=== PATIENT | female | born 1950 | race Caucasian/White ===

== ENCOUNTER 2018-06-29 04:30 | Emergency (ER) | payer MEDICARE, OTHER ==
[2018-06-29 05:52] LABS: #Basophils 0.1 thou/uL (0.0-0.2); #Eosinphils 0.1 thou/uL (0.0-0.7); #Lymphocytes 2.4 thou/uL (1.20-3.40); #Monocytes 0.6 thou/uL (0.11-0.59); #Neutrophils 10.3 thou/uL (1.40-6.50); %Basophils 0.4 % (0.0-1.0); %Eosinophils 0.8 % (0.0-10.0); %Lymphocytes 17.8 % (21.0-51.0); %Monocytes 4.4 % (0.0-10.0); %Neutrophils 76.6 % (42.0-75.0); Hemoglobin 13.9 g/dL (12.0-16.0); Mean Corpuscular HGB CONC 32.4 g/dL (32.0-36.0); Mean Corpuscular Hemoglobin 29.9 pg (27.0-31.0); Mean Corpuscular Volume 92.2 fL (78.0-98.0); Mean Platelet Volume 7.9 fL (7.4-10.4); Platelet Count 306 thou/uL (130-400); RBC Distribution Width 13.1 % (11.5-14.5); Red Blood Cell (RBC) Count 4.66 mill/uL (4.20-5.40); White Blood Cell (WBC) Count 13.4 thou/uL (4.8-10.8)
[2018-06-29 06:18] LABS: ALT (SGPT) 14 U/L (8-55); AST (SGOT) 13 U/L (5-34); Alkaline Phosphatase 114 U/L (40-150); Anion Gap 12 mmol/L (10-20); BUN (Urea Nitrogen) 22 mg/dL (9.8-20.1); Bilirubin, Total 0.2 mg/dL (0.2-1.2); Calc. Creatinine Clearance 0 mL/min (70-130); Calcium 9.9 mg/dL (7.8-10.44); Carbon Dioxide 28 mmol/L (23-31); Chloride 102 mmol/L (98-107); Estimated GFR-MDRD 61; Glucose 163 mg/dL (80-115); Lipase 18 U/L (8-78); Potassium 4.5 mmol/L (3.5-5.1); Sodium 137 mmol/L (136-145)
[2018-06-29 06:28] LABS: Bilirubin Negative (Negative); Blood, Urine Negative (Negative); Clarity CLEAR (Clear); Glucose, Urine (Dipstick) Negative (Negative); Leukocyte Negative (Negative); Nitrite Negative (Negative); Protein, Urine (Dipstick) Negative (Neg-Trace); Specific Gravity, Urine 1.025 (1.002-1.036)
[2018-06-29 06:30] LABS: Bacteria/HPF None Seen HPF (None Seen); Hyaline Casts/LPF 0-3 HYALINE CAST LPF (0-3 Hyaline); RBC/HPF 0-3 HPF (0-3); Squamous Epithelial 0-3 HPF (0-3)
[2018-06-29 06:41] LABS: Crystals/HPF 1+ CA OXALATE HPF (Negative)
--- NOTE | 2018-06-29 09:55 | CT ---
CT ABDOMEN AND PELVIS WITH IV CONTRAST: Date: 06/29/18 INDICATION: History of left upper quadrant abdominal pain with nausea, vomiting, and diarrhea. COMPARISON: Prior CT of abdomen and pelvis with contrast dated 07/16/16. FINDINGS: Lung bases are clear. There is diffuse fatty liver. There is cholelithiasis again noted. Pancreas and right adrenal gland are normal appearing. Diffuse nodular hypertrophy of the left adrena l gland appears stable. Calcified granuloma of spleen present. Kidneys are normal appearing. There are moderate calcifications involving the abdominal aorta. No free fluid or enlarged lymph nodes are evident. The bladder is partially decompressed. The rectum and reproductive structures appear within normal li mits. There is scattered diverticula involving the colon without evidence of active diverticulitis. There i s a normal appendix in the right lower quadrant. There is slight prominence of bowel loops within the right lower quadrant of the abdomen which may reflect sequelae of a mild enteritis. There is diffuse osteopenia. There is scattered degenerative and osteoarthritic change. IMPRESSION: 1. Slight prominence of a few bowel loops within the right lower quadrant of the abdomen may reflect sequelae of mild enteritis. 2. Fatty liver. 3. Cholelithiasis. 4. Findings of prior granulomatous disease. 5. Stable diffuse nodular hypertrophy of the left adrenal gland. 6. Colonic diverticulosis without evidence of active diverticulitis. POS: ALICIA
[2018-06-29] MEDS ORDERED: ISOVUE-370 76%-LOCM 1 ML ONE (15:40)
== END 2018-06-29 07:32 | disposition home or self-care (01) ==
LOC: ERS 04:30
DX: K52.9 Noninfective gastroenteritis and colitis, unspecified (principal); E03.9 Hypothyroidism, unspecified; E11.9 Type 2 diabetes mellitus without complications; Z79.84 Long term (current) use of oral hypoglycemic drugs
CPT/HCPCS: 74177; 80053; 81003; 83690; 85025; 96360; Q9966

== ENCOUNTER 2018-12-26 08:58 | Outpatient (CLI) | payer MEDICARE, OTHER ==
[2018-12-26 15:43] LABS: #Eosinphils 0.2 thou/uL (0.0-0.7); #Lymphocytes 2.9 thou/uL (1.20-3.40); #Monocytes 0.6 thou/uL (0.11-0.59); #Neutrophils 7.5 thou/uL (1.40-6.50); %Basophils 0.2 % (0.0-1.0); %Eosinophils 1.7 % (0.0-10.0); %Lymphocytes 25.6 % (21.0-51.0); %Monocytes 5.6 % (0.0-10.0); %Neutrophils 66.8 % (42.0-75.0); Hemoglobin 13.4 g/dL (12.0-16.0); Mean Corpuscular HGB CONC 32.4 g/dL (32.0-36.0); Mean Corpuscular Volume 92.6 fL (78.0-98.0); Mean Platelet Volume 7.8 fL (7.4-10.4); Platelet Count 275 thou/uL (130-400); RBC Distribution Width 13.7 % (11.5-14.5); Red Blood Cell (RBC) Count 4.48 mill/uL (4.20-5.40); White Blood Cell (WBC) Count 11.2 thou/uL (4.8-10.8)
[2018-12-26 16:04] LABS: ALT (SGPT) 22 U/L (8-55); AST (SGOT) 18 U/L (5-34); Albumin 3.9 g/dL (3.4-4.8); Alkaline Phosphatase 120 U/L (40-110); Anion Gap 10 mmol/L (10-20); BUN (Urea Nitrogen) 18 mg/dL (9.8-20.1); Bilirubin, Direct 0.1 mg/dL (0.1-0.3); Bilirubin, Total 0.3 mg/dL (0.2-1.2); Calc. Creatinine Clearance 0 mL/min (70-130); Calcium 9.4 mg/dL (7.8-10.44); Carbon Dioxide 29 mmol/L (23-31); Chloride 104 mmol/L (98-107); Estimated GFR-MDRD 56; Globulin 2.6 g/dL (2.4-3.5); Glucose 193 mg/dL (80-115); Potassium 4.4 mmol/L (3.5-5.1); Protein, Total 6.5 g/dL (6.0-8.3); Sodium 139 mmol/L (136-145)
--- NOTE | 2018-12-29 14:24 | EKG ---
Test Reason : Blood Pressure : / mmHG Vent. Rate : 086 BPM Atrial Rate : 086 BPM P-R Int : 164 ms QRS Dur : 100 ms QT Int : 366 ms P-R-T Axes : 072 001 035 degrees QTc Int : 437 ms Normal sinus rhythm with sinus arrhythmia Incomplete right bundle branch block Cannot rule out Anterior infarct (cited on or before 26-DEC-2018) Abnormal ECG When compared with ECG of 16-JUL-2016 14:13, ST no longer elevated in Inferior leads Confirmed by MAGUI GUEVARA (2) on 12/29/2018 2:24:35 PM Referred By: RUBENS Confirmed By:MAGUI GUEVARA
== END 2018-12-26 08:59 | disposition home or self-care (01) ==
LOC: LABBT 08:58
PROVIDERS: ATTEND Surgery
DX: Z01.818 Encounter for other preprocedural examination (principal); K80.20 Calculus of gallbladder without cholecystitis without obstruction
CPT/HCPCS: 80053; 80076; 85025; 93005; 93010

== ENCOUNTER 2019-01-06 05:43 | Day surgery (SDC) | payer MEDICARE, OTHER ==
[2018-12-26 14:54] VITALS: BMI 41.8
[2019-01-06] MEDS ORDERED: Sodium Chloride 0.9% 100 ML ONE (06:07)
[2019-01-06] MEDS ORDERED: cefOXitin 2 GM VIAL ONE (06:07)
[2019-01-06] MEDS ORDERED: Fentanyl 100 MCG/2 ML VIAL ONE (06:16)
[2019-01-06] MEDS ORDERED: Bupivacaine 0.25% HCL 30 ML VIAL ONE (06:59)
[2019-01-06] MEDS ORDERED: Midazolam HCl 2 mg/2 ml Vial ONE (07:15)
--- NOTE | 2019-01-06 11:11 | OP ---
DATE OF PROCEDURE: 01/06/2019 PREOPERATIVE DIAGNOSIS: Symptomatic cholelithiasis. PROCEDURE PERFORMED: Laparoscopic cholecystectomy. INDICATIONS: A 68-year-old female, morbidly obese, who has been having a right upper quadrant pain. Ultrasound showed cholelithiasis. FINDINGS: She had a very large stone. Thick bile with distention, adhesions to the gallbladder and a very nodular liver consistent with nonalcoholic steatohepatitis. DESCRIPTION OF PROCEDURE: After informed consent was obtained, the patient was taken to the operating room and given general endotracheal anesthesia and placed in the supine position. Abdomen was prepped and draped in usual fashion. Local anesthesia infiltrated subcutaneously and deep. An upper midline incision was performed. Subcu divided sharply. The fascia was grasped with 2 stay sutures of 0 Vicryl placed in each side of midline. Midline incised. Digital palpation revealed no local adhesions. A blunt 12 mm trocar inserted. Pneumoperitoneum was created to a pressure of 15 mmHg. A 0-degree laparoscope inserted and under direct vision, three 5 mm ports were placed subcostally. The gallbladder was distended, encased in omentum. The omentum was taken down. An attempt was made to aspirate the bile from the gallbladder, but the bile was too thick to go through the tube. Thick bile then leaked out of the gallbladder, but enough so that I could grasp the gallbladder advanced superiorly. The peritoneum was dissected distally to expose the cystic duct and artery in critical view. Cystic duct and artery were triply ligated with hemoclips and divided. The gallbladder removed from its fossa utilizing electrocautery, was placed in endosac, removed from the abdomen through the epigastric incision. Hemostasis was assured. Trocars and retractors removed. The fascia closed with interrupted 2-0 Vicryl suture. The skin closed with interrupted 4-0 Rapide. Dermabond applied. The patient tolerated the procedure well and transferred to Recovery in good condition. Sponge and needle count verified correct x2. Job ID: [id number]
[2019-01-06] MEDS ORDERED: PHENYLEPHRINE-NS 100 MCG/ML 10 ML SYRINGE ONE (14:29)
[2019-01-06] MEDS ORDERED: Succinylcholine Chloride 20 MG/ML 10 ml SYRINGE FS ONE (14:29)
[2019-01-06] MEDS ORDERED: Ketorolac Tromethamine 30 MG/ML VIAL ONE (14:29)
[2019-01-06] MEDS ORDERED: Glycopyrrolate 0.2 MG/ML 5 ML SYRINGE ONE (14:29)
[2019-01-06] MEDS ORDERED: ePHEDrine/0.9% NaCl/PF SYRINGE 50 mg/10 ml ONE (14:29)
[2019-01-06] MEDS ORDERED: PROPOFOL 200 MG/20 ML VIAL ONE (14:29)
[2019-01-06] MEDS ORDERED: Lidocaine 1% PF 5 ML VIAL ONE (14:29)
[2019-01-06] MEDS ORDERED: Ondansetron PF 4 MG/2 ML Vial ONE (14:29)
[2019-01-06] MEDS ORDERED: Rocuronium Bromide 10 MG/ML (10ML VIAL) ONE (14:29)
[2019-01-06] MEDS ORDERED: Metoclopramide HCl 10 MG/2 ML VIAL ONE (14:29)
== END 2019-01-06 13:33 | disposition home or self-care (01) ==
LOC: SDC 05:43
PROVIDERS: ATTEND Surgery
PROC: 0FT44ZZ Resection of Gallbladder, Percutaneous Endoscopic Approach (ICD-10-PCS; principal; 2019-01-06)
DX: K80.10 Calculus of gallbladder with chronic cholecystitis without obstruction (principal); K82.8 Other specified diseases of gallbladder; E11.9 Type 2 diabetes mellitus without complications; F41.9 Anxiety disorder, unspecified; E03.9 Hypothyroidism, unspecified; M19.90 Unspecified osteoarthritis, unspecified site; E66.01 Morbid (severe) obesity due to excess calories; Z68.41 Body mass index [BMI] 40.0-44.9, adult; Z87.891 Personal history of nicotine dependence; Z79.84 Long term (current) use of oral hypoglycemic drugs; Z79.899 Other long term (current) drug therapy; Z88.7 Allergy status to serum and vaccine; Z91.018 Allergy to other foods
CPT/HCPCS: 88304; 94660; J0131; J0694; J1885; J2001; J2250; J2405; J2704; J2765; J3010; J3490; S0020

== ENCOUNTER 2021-09-02 17:02 | Inpatient (IN) | payer OTHER ==
[~2021-09-02 17:02] MED LIST: Iopamidol-370 76% 500 ML 1 ML ONE
[2021-09-02] MEDS ORDERED: methylPREDNISolone Sod Succ/PF 125 MG/2 ML VIAL ONE (17:25)
[2021-09-02] MEDS ORDERED: Magnesium 2 GM/50 ML BAG (IN WATER) ONE (17:25)
[2021-09-02 17:35] LABS: #Eosinphils 0.1 thou/uL (0.0-0.7); #Lymphocytes 2.1 thou/uL (1.20-3.40); #Monocytes 0.7 thou/uL (0.11-0.59); #Neutrophils 9.5 thou/uL (1.40-6.50); %Basophils 0.1 % (0.0-1.0); %Eosinophils 1.1 % (0.0-10.0); %Lymphocytes 16.9 % (21.0-51.0); %Monocytes 5.6 % (0.0-10.0); %Neutrophils 76.4 % (42.0-75.0); Hemoglobin 13.1 g/dL (12.0-16.0); Mean Corpuscular HGB CONC 31.1 g/dL (32.0-36.0); Mean Corpuscular Hemoglobin 29.2 pg (27.0-31.0); Mean Platelet Volume 7.6 fL (7.4-10.4); Platelet Count 238 thou/uL (130-400); RBC Distribution Width 14.8 % (11.5-14.5); Red Blood Cell (RBC) Count 4.48 mill/uL (4.20-5.40); White Blood Cell (WBC) Count 12.4 thou/uL (4.8-10.8)
[2021-09-02 17:54] LABS: ALT (SGPT) 33 U/L (8-55); AST (SGOT) 26 U/L (5-34); Albumin 3.9 g/dL (3.4-4.8); Alkaline Phosphatase 95 U/L (40-110); Anion Gap 13 mmol/L (10-20); BUN (Urea Nitrogen) 13 mg/dL (9.8-20.1); Bilirubin, Total 0.6 mg/dL (0.2-1.2); Calc. Creatinine Clearance 0 mL/min (70-130); Calcium 9.1 mg/dL (7.8-10.44); Carbon Dioxide 32 mmol/L (23-31); Chloride 99 mmol/L (98-107); Estimated GFR 89; Globulin 2.7 g/dL (2.4-3.5); Glucose 145 mg/dL (83-110); Potassium 4.2 mmol/L (3.5-5.1); Protein, Total 6.6 g/dL (5.8-8.1); Sodium 140 mmol/L (136-145)
[2021-09-02 18:16] LABS: CKMB 3.6 ng/mL (0-6.6)
[2021-09-02] MEDS ORDERED: Aspirin Chewable 81 MG TAB ONE ×2 (18:19→18:20)
[2021-09-02] MEDS ORDERED: cefTRIAXone\\ROCEPHIN 2 GM VIAL ONE (18:22)
[2021-09-02 18:51] LABS: SARS-CoV-2 NAA Rapid Test Not Detected (NotDetected)
[2021-09-02] MEDS ORDERED: Amlodipine 10 MG TAB PO SCH (20:30)
[2021-09-02] MEDS: hydrALAZINE 20 MG/ML VIAL SLOW IVP PRN (21:56)
[2021-09-02] MEDS ORDERED: Azithromycin 250 MG TAB PO SCH (22:30)
[2021-09-03 00:24] VITALS: BMI 39.9
[2021-09-03] MEDS ORDERED: Dextrose 5% in Water 1,000 ML IV PRN ×2 (00:41→00:45)
[2021-09-03] MEDS ORDERED: Dextrose 50% Abboject 50 ML SYRINGE SLOW IVP PRN (00:41)
[2021-09-03] MEDS ORDERED: HumaLOG 300 UNITS/3 ML VIAL SC PRN ×3 (00:41→00:45)
[2021-09-03] MEDS ORDERED: Dextrose 50% Abboject 50 ML SYRINGE IVP PRN (00:45)
[2021-09-03 04:11] LABS: #Lymphocytes 1.3 thou/uL (1.20-3.40); #Monocytes 0.4 thou/uL (0.11-0.59); #Neutrophils 13.4 thou/uL (1.40-6.50); %Eosinophils 0.3 % (0.0-10.0); %Lymphocytes 8.7 % (21.0-51.0); %Monocytes 2.4 % (0.0-10.0); %Neutrophils 88.6 % (42.0-75.0); Hemoglobin 13.8 g/dL (12.0-16.0); Mean Corpuscular HGB CONC 30.6 g/dL (32.0-36.0); Mean Corpuscular Volume 94.9 fL (78.0-98.0); Mean Platelet Volume 7.8 fL (7.4-10.4); Platelet Count 286 thou/uL (130-400); RBC Distribution Width 15.1 % (11.5-14.5); Red Blood Cell (RBC) Count 4.76 mill/uL (4.20-5.40); White Blood Cell (WBC) Count 15.1 thou/uL (4.8-10.8)
[2021-09-03 04:25] LABS: Hemoglobin A1c 7.8 % (4.0-6.0)
[2021-09-03 04:31] LABS: Anion Gap 13 mmol/L (10-20); BUN (Urea Nitrogen) 15 mg/dL (9.8-20.1); Calc. Creatinine Clearance 117 mL/min (70-130); Calcium 9.6 mg/dL (7.8-10.44); Carbon Dioxide 33 mmol/L (23-31); Chloride 100 mmol/L (98-107); Estimated GFR 75; Glucose 251 mg/dL (83-110); Magnesium 2.6 mg/dL (1.6-2.6); Potassium 4.5 mmol/L (3.5-5.1); Sodium 141 mmol/L (136-145)
[2021-09-03] MEDS: Levothyroxine Sodium 50 MCG TAB PO SCH (05:19)
[2021-09-03] MEDS: HumaLOG 300 UNITS/3 ML VIAL SC PRN (06:10)
[2021-09-03] MEDS ORDERED: metFORMIN 500 MG TAB PO SCH (09:00)
[2021-09-03] MEDS ORDERED: Amlodipine 10 MG TAB PO SCH (09:00)
[2021-09-03] MEDS ORDERED: Meloxicam 15 MG TAB PO SCH (09:00)
[2021-09-03] MEDS: DULoxetine 60 MG CAP PO SCH (09:34)
[2021-09-03] MEDS: predniSONE 20 MG TAB PO SCH (09:34)
[2021-09-03] MEDS: Azithromycin 250 MG TAB PO SCH (09:34)
[2021-09-03] MEDS: metFORMIN 500 MG TAB PO SCH ×2 (09:34→16:22)
[2021-09-03] MEDS: Enoxaparin Sodium 40 MG/0.4 ML SYRINGE SC SCH (09:34)
[2021-09-03] MEDS: Triamterene/Hydrochlorothiazide 37.5 mg/25 mg Tablet PO SCH (09:35)
[2021-09-03] MEDS: Mometasone 200 MCG/Formoterol 5 MCG 120 PUFF INHALER INH SCH ×2 (09:52→18:55)
[2021-09-03] MEDS ORDERED: Furosemide 20 MG/2 ML VIAL SLOW IVP SCH (13:15)
[2021-09-03] MEDS: Montelukast Sodium 10 mg Tablet PO SCH (20:13)
[2021-09-03] MEDS: Atorvastatin Calcium 10 MG TAB PO SCH (20:13)
[2021-09-04 04:25] LABS: #Lymphocytes 1.6 thou/uL (1.20-3.40); #Monocytes 0.8 thou/uL (0.11-0.59); #Neutrophils 12.2 thou/uL (1.40-6.50); %Basophils 0.1 % (0.0-1.0); %Eosinophils 0.3 % (0.0-10.0); %Lymphocytes 10.7 % (21.0-51.0); %Monocytes 5.1 % (0.0-10.0); %Neutrophils 83.7 % (42.0-75.0); Hemoglobin 12.1 g/dL (12.0-16.0); Mean Corpuscular HGB CONC 31.6 g/dL (32.0-36.0); Mean Corpuscular Volume 95.1 fL (78.0-98.0); Mean Platelet Volume 7.9 fL (7.4-10.4); Platelet Count 267 thou/uL (130-400); RBC Distribution Width 15.2 % (11.5-14.5); Red Blood Cell (RBC) Count 4.03 mill/uL (4.20-5.40); White Blood Cell (WBC) Count 14.6 thou/uL (4.8-10.8)
[2021-09-04 04:37] LABS: Anion Gap 13 mmol/L (10-20); BUN (Urea Nitrogen) 25 mg/dL (9.8-20.1); Calc. Creatinine Clearance 99 mL/min (70-130); Calcium 9.4 mg/dL (7.8-10.44); Carbon Dioxide 33 mmol/L (23-31); Chloride 97 mmol/L (98-107); Estimated GFR 62; Glucose 271 mg/dL (83-110); Potassium 3.9 mmol/L (3.5-5.1); Sodium 139 mmol/L (136-145)
[2021-09-04] MEDS: Levothyroxine Sodium 50 MCG TAB PO SCH (05:38)
[2021-09-04] MEDS: Mometasone 200 MCG/Formoterol 5 MCG 120 PUFF INHALER INH SCH ×2 (07:18→19:22)
[2021-09-04] MEDS: Azithromycin 250 MG TAB PO SCH (09:44)
[2021-09-04] MEDS: DULoxetine 60 MG CAP PO SCH (09:44)
[2021-09-04] MEDS: metFORMIN 500 MG TAB PO SCH ×2 (09:44→17:19)
[2021-09-04] MEDS: Triamterene/Hydrochlorothiazide 37.5 mg/25 mg Tablet PO SCH (09:45)
[2021-09-04] MEDS: predniSONE 20 MG TAB PO SCH (09:45)
[2021-09-04] MEDS: Enoxaparin Sodium 40 MG/0.4 ML SYRINGE SC SCH (09:46)
[2021-09-04] MEDS ORDERED: Acetaminophen 500 MG TAB PO SCH (12:15)
[2021-09-04] MEDS ORDERED: Amlodipine 10 MG TAB PO SCH (14:48)
[2021-09-04] MEDS: HumaLOG 300 UNITS/3 ML VIAL SC PRN (17:20)
[2021-09-04] MEDS: Montelukast Sodium 10 mg Tablet PO SCH (20:12)
[2021-09-04] MEDS: Atorvastatin Calcium 10 MG TAB PO SCH (20:12)
[2021-09-04] MEDS ORDERED: hydrOXYzine 25 MG TAB PO SCH (22:15)
[2021-09-05] MEDS: hydrALAZINE 20 MG/ML VIAL SLOW IVP PRN (01:38)
[2021-09-05] MEDS: Levothyroxine Sodium 50 MCG TAB PO SCH (05:04)
[2021-09-05] MEDS: Mometasone 200 MCG/Formoterol 5 MCG 120 PUFF INHALER INH SCH ×2 (07:01→19:19)
[2021-09-05 08:08] LABS: #Eosinphils 0.1 thou/uL (0.0-0.7); #Lymphocytes 2.1 thou/uL (1.20-3.40); #Monocytes 1.1 thou/uL (0.11-0.59); #Neutrophils 13.1 thou/uL (1.40-6.50); %Basophils 0.2 % (0.0-1.0); %Eosinophils 0.4 % (0.0-10.0); %Monocytes 6.6 % (0.0-10.0); %Neutrophils 79.8 % (42.0-75.0); Hemoglobin 13.3 g/dL (12.0-16.0); Mean Corpuscular Hemoglobin 28.6 pg (27.0-31.0); Mean Corpuscular Volume 95.4 fL (78.0-98.0); Mean Platelet Volume 7.5 fL (7.4-10.4); Platelet Count 252 thou/uL (130-400); Red Blood Cell (RBC) Count 4.66 mill/uL (4.20-5.40); White Blood Cell (WBC) Count 16.4 thou/uL (4.8-10.8)
[2021-09-05 08:18] LABS: Anion Gap 13 mmol/L (10-20); BUN (Urea Nitrogen) 17 mg/dL (9.8-20.1); Calc. Creatinine Clearance 124 mL/min (70-130); Calcium 9.6 mg/dL (7.8-10.44); Carbon Dioxide 34 mmol/L (23-31); Chloride 96 mmol/L (98-107); Estimated GFR 82; Glucose 157 mg/dL (83-110); Potassium 4.4 mmol/L (3.5-5.1); Sodium 139 mmol/L (136-145)
[2021-09-05] MEDS: DULoxetine 60 MG CAP PO SCH (08:56)
[2021-09-05] MEDS: metFORMIN 500 MG TAB PO SCH ×2 (08:56→17:15)
[2021-09-05] MEDS: Amlodipine 10 MG TAB PO SCH (08:56)
[2021-09-05] MEDS: Azithromycin 250 MG TAB PO SCH (08:56)
[2021-09-05] MEDS: Triamterene/Hydrochlorothiazide 37.5 mg/25 mg Tablet PO SCH (08:56)
[2021-09-05] MEDS: Enoxaparin Sodium 40 MG/0.4 ML SYRINGE SC SCH (08:57)
[2021-09-05] MEDS: predniSONE 20 MG TAB PO SCH (09:02)
[2021-09-05] MEDS: Empagliflozin 10 MG TAB PO SCH (09:11)
[2021-09-05] MEDS ORDERED: Sodium Chloride 0.65% Nasal 44 ML BOT EA NARE PRN (12:19)
[2021-09-05] MEDS: HumaLOG 300 UNITS/3 ML VIAL SC PRN ×2 (12:19→17:15)
[2021-09-05] MEDS: Sodium Chloride 0.65% Nasal 44 ML BOT EA NARE SCH ×2 (19:25→21:36)
[2021-09-05] MEDS: Atorvastatin Calcium 10 MG TAB PO SCH (21:35)
[2021-09-05] MEDS: Montelukast Sodium 10 mg Tablet PO SCH (21:35)
[2021-09-05] MEDS: Doxycycline 100 MG CAP PO SCH (21:35)
[2021-09-06 04:40] LABS: #Basophils 0.1 thou/uL (0.0-0.2); #Eosinphils 0.1 thou/uL (0.0-0.7); #Lymphocytes 2.8 thou/uL (1.20-3.40); #Monocytes 0.8 thou/uL (0.11-0.59); #Neutrophils 8.9 thou/uL (1.40-6.50); %Basophils 0.8 % (0.0-1.0); %Eosinophils 0.6 % (0.0-10.0); %Lymphocytes 21.8 % (21.0-51.0); %Monocytes 6.2 % (0.0-10.0); %Neutrophils 70.6 % (42.0-75.0); Hemoglobin 12.2 g/dL (12.0-16.0); Mean Corpuscular HGB CONC 31.2 g/dL (32.0-36.0); Mean Corpuscular Hemoglobin 28.9 pg (27.0-31.0); Mean Corpuscular Volume 92.7 fL (78.0-98.0); Mean Platelet Volume 7.9 fL (7.4-10.4); Platelet Count 270 thou/uL (130-400); RBC Distribution Width 14.7 % (11.5-14.5); Red Blood Cell (RBC) Count 4.22 mill/uL (4.20-5.40); White Blood Cell (WBC) Count 12.6 thou/uL (4.8-10.8)
[2021-09-06 04:55] LABS: Anion Gap 14 mmol/L (10-20); BUN (Urea Nitrogen) 23 mg/dL (9.8-20.1); Calc. Creatinine Clearance 133 mL/min (70-130); Calcium 9.9 mg/dL (7.8-10.44); Carbon Dioxide 37 mmol/L (23-31); Chloride 92 mmol/L (98-107); Estimated GFR 89; Glucose 93 mg/dL (83-110); Potassium 3.6 mmol/L (3.5-5.1); Sodium 139 mmol/L (136-145)
[2021-09-06] MEDS: Levothyroxine Sodium 50 MCG TAB PO SCH (05:27)
[2021-09-06] MEDS: Mometasone 200 MCG/Formoterol 5 MCG 120 PUFF INHALER INH SCH ×2 (06:57→18:50)
[2021-09-06] MEDS: DULoxetine 60 MG CAP PO SCH (10:01)
[2021-09-06] MEDS: metFORMIN 500 MG TAB PO SCH ×2 (10:01→17:35)
[2021-09-06] MEDS: Triamterene/Hydrochlorothiazide 37.5 mg/25 mg Tablet PO SCH (10:01)
[2021-09-06] MEDS: Doxycycline 100 MG CAP PO SCH ×2 (10:01→20:05)
[2021-09-06] MEDS: Sodium Chloride 0.65% Nasal 44 ML BOT EA NARE SCH ×3 (10:03→20:05)
[2021-09-06] MEDS: Amlodipine 10 MG TAB PO SCH (10:04)
[2021-09-06] MEDS: Empagliflozin 10 MG TAB PO SCH (10:04)
[2021-09-06] MEDS: Acetaminophen 325 MG TAB PO PRN ×2 (10:04→20:05)
[2021-09-06] MEDS: predniSONE 20 MG TAB PO SCH (10:12)
[2021-09-06] MEDS: Enoxaparin Sodium 40 MG/0.4 ML SYRINGE SC SCH (10:12)
[2021-09-06] MEDS: HumaLOG 300 UNITS/3 ML VIAL SC PRN ×3 (11:35→17:32)
[2021-09-06] MEDS: Atorvastatin Calcium 10 MG TAB PO SCH (20:05)
[2021-09-06] MEDS: Montelukast Sodium 10 mg Tablet PO SCH (20:05)
[2021-09-06] MEDS ORDERED: Melatonin 3 MG TAB PO PRN (20:55)
[2021-09-07] MEDS: Mometasone 200 MCG/Formoterol 5 MCG 120 PUFF INHALER INH SCH (07:00)
[2021-09-07] MEDS: Levothyroxine Sodium 50 MCG TAB PO SCH (07:17)
[2021-09-07 07:55] VITALS: TEMP 97.5
[2021-09-07] MEDS: metFORMIN 500 MG TAB PO SCH (08:52)
[2021-09-07] MEDS: Amlodipine 10 MG TAB PO SCH (08:52)
[2021-09-07] MEDS: DULoxetine 60 MG CAP PO SCH (08:52)
[2021-09-07] MEDS: Enoxaparin Sodium 40 MG/0.4 ML SYRINGE SC SCH (08:52)
[2021-09-07] MEDS: Triamterene/Hydrochlorothiazide 37.5 mg/25 mg Tablet PO SCH (08:52)
[2021-09-07] MEDS: Empagliflozin 10 MG TAB PO SCH (08:53)
[2021-09-07] MEDS: Doxycycline 100 MG CAP PO SCH (08:53)
[2021-09-07] MEDS: Sodium Chloride 0.65% Nasal 44 ML BOT EA NARE SCH (08:54)
[2021-09-07] MEDS ORDERED: Acetaminophen 500 MG TAB PO SCH (11:03)
[2021-09-07 11:44] VITALS: BP 158/66
== END 2021-09-07 13:01 | disposition home or self-care (01) | DRG 189 ==
LOC: ERS 17:02 → ERHOLD 18:34 → 2NO 21:00
PROVIDERS: ADMIT Student in an Organized Health Care Education/Training Program; ATTEND Student in an Organized Health Care Education/Training Program
PROC: 5A09357 Assistance with Respiratory Ventilation, Less than 24 Consecutive Hours, Continuous Positive Airway Pressure (ICD-10-PCS; principal; 2021-09-04)
DX: J96.01 Acute respiratory failure with hypoxia (principal); J44.1 Chronic obstructive pulmonary disease with (acute) exacerbation; I47.2 Ventricular tachycardia; I50.32 Chronic diastolic (congestive) heart failure; Z20.822 Contact with and (suspected) exposure to COVID-19; E11.9 Type 2 diabetes mellitus without complications; G47.33 Obstructive sleep apnea (adult) (pediatric); I16.0 Hypertensive urgency; I45.10 Unspecified right bundle-branch block; R94.31 Abnormal electrocardiogram [ECG] [EKG]; E03.9 Hypothyroidism, unspecified; R22.42 Localized swelling, mass and lump, left lower limb; R77.8 Other specified abnormalities of plasma proteins; I11.0 Hypertensive heart disease with heart failure; E66.9 Obesity, unspecified; Z68.39 Body mass index [BMI] 39.0-39.9, adult; Z87.891 Personal history of nicotine dependence; Z88.7 Allergy status to serum and vaccine; Z91.018 Allergy to other foods; Z79.899 Other long term (current) drug therapy; Z79.84 Long term (current) use of oral hypoglycemic drugs; Z79.890 Hormone replacement therapy; Z90.49 Acquired absence of other specified parts of digestive tract; Z82.49 Family history of ischemic heart disease and other diseases of the circulatory system
CPT/HCPCS: 36415; 36416; 71045; 71275; 80048; 80053; 82553; 83036; 83605; 83735; 83880; 84145; 84443; 84484; 85025; 85379; 87040; 93005; 93010; 93306; 94640; 94760; 96365; 96366; 96367; 96375; J0360; J0696; J1650; J1815; J1940; J2930; J3475; J7512; J7620; Q9967

== ENCOUNTER 2023-08-23 06:22 | Day surgery (SDC) | payer OTHER ==
[2023-08-21 10:40] VITALS: BMI 34.4
[~2023-08-23 06:22] MED LIST changes: +EPINEPHrine 0.3 MG in Ophthalmic Irrigation Solution 500 ML IRR SCH; -Iopamidol-370 76% 500 ML 1 ML ONE
[2023-08-23] MEDS ORDERED: Cyclopentolate 1% Opth Drop 2 ML BOT ONE (06:56)
[2023-08-23] MEDS ORDERED: PHENYLephrine 2.5% Ophth Soln 15 ml Bottle ONE (06:56)
[2023-08-23] MEDS ORDERED: Lidocaine 1% PF 5 ML VIAL ONE ×2 (07:41→07:50)
[2023-08-23] MEDS ORDERED: Midazolam HCl 2 mg/2 ml Vial ONE (07:41)
[2023-08-23] MEDS ORDERED: Bupivacaine 0.75% 10 ML VIAL ONE (07:50)
[2023-08-23] MEDS ORDERED: Maxitrol 0.1% Opth Oint 3.5 GM TUBE ONE (07:50)
[2023-08-23] MEDS ORDERED: PROPOFOL 200 MG/20 ML VIAL ONE (07:50)
[2023-08-23] MEDS ORDERED: TISSUEBLUE 0.5 ML SYRINGE IO ONE (07:50)
[2023-08-23] MEDS ORDERED: CEFAZOLIN 1 GM VIAL ONE (07:50)
[2023-08-23] MEDS ORDERED: Lidocaine 4% PF 5 ML AMP ONE (07:50)
[2023-08-23] MEDS ORDERED: Triamcinolone 40 MG/ML VIAL ONE (07:50)
== END 2023-08-23 09:00 | disposition home or self-care (01) ==
LOC: SDC 06:22
PROVIDERS: ATTEND Ophthalmology Retina Specialist
PROC: 08T43ZZ Resection of Right Vitreous, Percutaneous Approach (ICD-10-PCS; principal; 2023-08-23)
DX: H35.371 Puckering of macula, right eye (principal)
CPT/HCPCS: 67041; 93005; J0171; J0690; J2250; J2704; J3301; J3490; 93010

== ENCOUNTER 2024-10-14 13:23 | Outpatient (CLI) | payer OTHER | END 2024-10-14 13:24 | disposition home or self-care (01) | LOC: RAD 13:23 | PROVIDERS: ATTEND Internal Medicine | DX: R06.00 Dyspnea, unspecified (principal); I51.7 Cardiomegaly | CPT/HCPCS: 71046 ==